=== PATIENT | male | born 1970 | race Caucasian/White ===

== ENCOUNTER → 2016-10-17 | Outpatient (CLI) | payer SELFPAY ==
--- NOTE | 2016-10-18 08:30 | US ---
Superficial sonogram of the right axilla. Indication: RT AXILLARY SUBCUTANEOUS MASS Comparison: None. IMPRESSION: At the palpable area of concern there are 2 subcutaneous mass lesions measuring up to 4.6 cm and 1.9 cm respectively. These may be connected. No internal color Doppler flow. They appear to be cystic with internal debris. No definite solid component. Further characterization with contrast-enhanced CT of the chest recommended to better evaluate and exclude any solid component. Electronically signed by: Madhav Zuniga MD 10/18/2016 8:28 AM CDT
== END | disposition home or self-care (01) ==
LOC: RAD 17:02
PROVIDERS: ATTEND Surgery
DX: R22.31 Localized swelling, mass and lump, right upper limb (principal)